=== PATIENT | male | born 1940 | race Asian ===

== ENCOUNTER 2017-03-28 09:20 | Inpatient (IN) | payer OTHER ==
[2017-03-21 16:12] LABS: BASOPHILS % (AUTO) 0.7 % (0.0-2.0); EOSINOPHILS # (AUTO) 0.5 K/uL (0.0-0.4); EOSINOPHILS % (AUTO) 8.2 % (0.0-4.0); HEMATOCRIT 38.9 % (36-54); HEMOGLOBIN 12.8 g/dL (14.0-18.0); LYMPHOCYTES # (AUTO) 1.6 K/uL (1.0-5.5); LYMPHOCYTES % (AUTO) 24.2 % (20.5-51.5); MEAN CORPUSCULAR HEMOGLOBIN 31 pg (27-31); MEAN CORPUSCULAR HGB CONC 33 % (32-36); MEAN CORPUSCULAR VOLUME 94 fL (79.0-98.0); MONOCYTES # (AUTO) 0.6 K/uL (0.0-1.0); MONOCYTES % (AUTO) 8.7 % (1.7-9.3); NEUTROPHILS # (AUTO) 3.9 K/uL (1.8-7.7); NEUTROPHILS % (AUTO) 58.2 % (40.0-70.0); PLATELET COUNT (AUTO) 163 K/uL (130-430); RED BLOOD CELL COUNT(AUTO) 4.15 MIL/uL (4.2-6.2); RED CELL DISTRIBUTION WIDTH 11.5 % (9.0-15.0); WHITE BLOOD COUNT (AUTO) 6.6 K/uL (4.8-10.8)
[2017-03-21 16:18] LABS: ANION GAP 7 (5-15); CALCIUM 9.2 mg/dL (8.4-11.0); CHLORIDE 109 mmol/L (98-107); CREATININE 1.15 mg/dL (0.55-1.30); GLUCOSE 126 mg/dL (70-99); POTASSIUM 4.2 mmol/L (3.5-5.1); SODIUM SERUM 141 mmol/L (136-145); UREA NITROGEN, BLOOD 20 mg/dL (8-21)
[2017-03-21 16:33] LABS: BILIRUBIN,URINE NEGATIVE (NEGATIVE); BLOOD, URINE NEGATIVE (NEGATIVE); CLARITY/URINE CLEAR (CLEAR); COLOR,URINE YELLOW (YELLOW); GLUCOSE,URINE NEGATIVE (NEGATIVE); KETONES,URINE NEGATIVE (NEGATIVE); LEUKOCYTE ESTERASE ,URINE NEGATIVE (NEGATIVE); NITRITE, URINE NEGATIVE (NEGATIVE); PH,URINE 5.5 (5.0-8.0); PROTEIN URINE NEGATIVE (NEGATIVE); UROBILINOGEN,URINE 0.2 (0.2-1.0)
[~2017-03-28] VITALS: Ht 162.6 cm; Wt 85.3 kg
[~2017-03-28 09:20] MED LIST: ASA81 PO; ASPI-1063 PO; DOCU-144 PO; ESOM40CA PO; LEVO125T8 PO; LOSA100T11 PO; METO25TA3 PO; NAPR-688 PO; OMEP40CA33 PO; SIMV20TA2 PO
[2017-03-28] MEDS ORDERED: CEFAZOLIN 2 GM IVPB PREMIX 50 ML IV ONE (10:00)
[2017-03-28] MEDS ORDERED: LR 1,000 ML IV ONE ×2 (10:00→13:23)
[2017-03-28] MEDS ORDERED: VANCOMYCIN HCL 1 GM/NS PREMIX 250 ML IV ONE (10:00)
[2017-03-28] MEDS ORDERED: TRANEXAMIC ACID 1,000 MG/10 ML VIAL IV ONE (10:15)
[2017-03-28] MEDS ORDERED: POLYMYXIN 500,000/BACIT.10,000 UNITS in NS IRR 1 L IR ONE (10:21)
[2017-03-28] MEDS ORDERED: DEXAMETHASONE SOD PHOSPHATE 4 MG/ML VIAL IVP ONE (11:26)
[2017-03-28] MEDS ORDERED: METOCLOPRAMIDE HCL 10 MG/2 ML VIAL IVP ONE (11:26)
[2017-03-28] MEDS ORDERED: KETOROLAC TROMETHAMINE 30 MG VIAL IVP ONE (11:26)
[2017-03-28] MEDS ORDERED: PROPOFOL 200MG/ 20ML VIAL (DIPRIVAN) IV ONE (11:26)
[2017-03-28] MEDS ORDERED: LR 1,000 ML IV.SOLN IV ONE (11:26)
[2017-03-28] MEDS ORDERED: SEVOFLURANE 15 MIN GAS INH ONE (11:26)
[2017-03-28] MEDS ORDERED: MORPHINE SULFATE 10MG/10ML PF AMP EP ONE (11:26)
[2017-03-28] MEDS ORDERED: ROPIVACAINE 0.2% (NAROPIN) PF SOLUTION 100 ML BOTTLE EP ONE (11:26)
[2017-03-28] MEDS ORDERED: ROPIVACAINE HCL/PF 5 MG/ML 0.5% 30 ML VIAL INJ ONE (11:26)
[2017-03-28] MEDS ORDERED: VANCOMYCIN HCL 1000 MG/VIAL IV ONE (11:26)
[2017-03-28] MEDS ORDERED: MIDAZOLAM HCL 5 MG/5 ML VIAL IVP ONE (11:26)
[2017-03-28] MEDS ORDERED: fentaNYL CITRATE 250 MCG/5 ML AMP IV ONE (11:26)
[2017-03-28] MEDS ORDERED: NORMAL SALINE 10 ML VIAL IVP ONE (11:26)
[2017-03-28] MEDS ORDERED: NS 100 ML BAG IV ONE (11:26)
[2017-03-28] MEDS ORDERED: MORPHINE SULFATE 10 MG/ML VIAL IVP ONE (11:26)
[2017-03-28] MEDS ORDERED: DIPHENHYDRAMINE INJ 50 MG/ML VIAL IVP PRN (13:30)
[2017-03-28] MEDS ORDERED: NALBUPHINE HCL 10 MG/ML AMP IVP PRN (13:30)
[2017-03-28] MEDS ORDERED: ONDANSETRON HCL 4 MG/2 ML VIAL IVP PRN ×3 (13:30→14:45)
[2017-03-28] MEDS ORDERED: ePHEDrine sulfate 50 MG/ML VIAL IVP PRN (13:30)
[2017-03-28] MEDS ORDERED: fentaNYL CITRATE/PF 100 MCG/2 ML AMP IVP PRN (13:30)
[2017-03-28] MEDS ORDERED: NALOXONE HCL 0.4 MG/ML AMP (NARCAN) IVP PRN (13:30)
[2017-03-28] MEDS ORDERED: DIPHENHYDRAMINE HCL 25 MG CAPSULE PO PRN (14:45)
[2017-03-28] MEDS ORDERED: fentaNYL CITRATE/PF 100 MCG/2 ML AMP ONE (15:34)
[2017-03-28 16:20] VITALS: BP_SYST 127
[2017-03-28] MEDS: D5/0.45 NS 1,000 ML IV SCH (16:31)
[2017-03-28] MEDS: KETOROLAC TROMETHAMINE 15 MG VIAL IVP SCH (17:27)
[2017-03-28] MEDS ORDERED: TRANEXAMIC ACID 1,000 MG in NS 50 ML IV ONE (18:00)
[2017-03-28] MEDS: SENNOSIDES 8.6 MG TABLET PO SCH (20:36)
[2017-03-28] MEDS: SIMVASTATIN 20 MG TABLET PO SCH (20:36)
[2017-03-28 20:38] VITALS: BP_SYST 111
[2017-03-28 23:54] VITALS: BP_SYST 109
[2017-03-29] VITALS (7 sets, daily range): BP systolic 102–120
[2017-03-29] MEDS: KETOROLAC TROMETHAMINE 15 MG VIAL IVP SCH ×2 (00:46→06:01)
[2017-03-29] MEDS: D5/0.45 NS 1,000 ML IV SCH ×4 (00:46→22:41)
[2017-03-29] MEDS: LEVOTHYROXINE SODIUM 0.125 MG TABLET PO SCH (06:01)
[2017-03-29 07:12] LABS: ANION GAP 7 (5-15); CALCIUM 8.3 mg/dL (8.4-11.0); CHLORIDE 106 mmol/L (98-107); CREATININE 1.33 mg/dL (0.55-1.30); GLUCOSE 142 mg/dL (70-99); POTASSIUM 4.6 mmol/L (3.5-5.1); SODIUM SERUM 138 mmol/L (136-145); UREA NITROGEN, BLOOD 20 mg/dL (8-21)
[2017-03-29 07:23] LABS: BASOPHILS % (AUTO) 0.4 % (0.0-2.0); HEMATOCRIT 31.6 % (36-54); HEMOGLOBIN 10.6 g/dL (14.0-18.0); LYMPHOCYTES # (AUTO) 1.3 K/uL (1.0-5.5); LYMPHOCYTES % (AUTO) 11.6 % (20.5-51.5); MEAN CORPUSCULAR HEMOGLOBIN 31 pg (27-31); MEAN CORPUSCULAR HGB CONC 34 % (32-36); MEAN CORPUSCULAR VOLUME 93 fL (79.0-98.0); MONOCYTES # (AUTO) 0.9 K/uL (0.0-1.0); MONOCYTES % (AUTO) 8.6 % (1.7-9.3); NEUTROPHILS # (AUTO) 8.7 K/uL (1.8-7.7); NEUTROPHILS % (AUTO) 79.4 % (40.0-70.0); PLATELET COUNT (AUTO) 133 K/uL (130-430); RED BLOOD CELL COUNT(AUTO) 3.41 MIL/uL (4.2-6.2); RED CELL DISTRIBUTION WIDTH 12.1 % (9.0-15.0); WHITE BLOOD COUNT (AUTO) 10.9 K/uL (4.8-10.8)
[2017-03-29] MEDS: LOSARTAN POTASSIUM 50 MG TABLET (COZAAR) PO SCH (08:43)
[2017-03-29] MEDS: METOPROLOL SUCCINATE 25 MG TAB.SR.24H (TOPROL XL) PO SCH (08:43)
[2017-03-29] MEDS: OMEPRAZOLE 20 MG CAPSULE.DR (PriLOSEC) PO SCH (08:56)
[2017-03-29] MEDS: MULTIVITAMINS TAB 1 TABLET PO SCH (08:57)
[2017-03-29] MEDS: ASCORBIC ACID 500 MG TABLET PO SCH ×2 (08:57→21:57)
[2017-03-29] MEDS: HYDROcodone/ACETAMIN 7.5-325 MG TAB PO PRN ×2 (08:59→14:32)
[2017-03-29] MEDS: RIVAROXABAN 10 MG TABLET PO SCH (10:40)
[2017-03-29] MEDS: SENNOSIDES 8.6 MG TABLET PO SCH (21:00)
[2017-03-29] MEDS: SIMVASTATIN 20 MG TABLET PO SCH (21:57)
[2017-03-30] MEDS: HYDROcodone/ACETAMIN 7.5-325 MG TAB PO PRN ×5 (00:04→18:09)
[2017-03-30 00:40] VITALS: BP_SYST 134
[2017-03-30 04:52] VITALS: BP_SYST 122
[2017-03-30] MEDS: LEVOTHYROXINE SODIUM 0.125 MG TABLET PO SCH (06:21)
[2017-03-30 07:10] LABS: BASOPHILS % (AUTO) 0.3 % (0.0-2.0); EOSINOPHILS # (AUTO) 0.2 K/uL (0.0-0.4); EOSINOPHILS % (AUTO) 2.4 % (0.0-4.0); HEMATOCRIT 30.1 % (36-54); LYMPHOCYTES # (AUTO) 1.5 K/uL (1.0-5.5); MEAN CORPUSCULAR HEMOGLOBIN 31 pg (27-31); MEAN CORPUSCULAR HGB CONC 33 % (32-36); MEAN CORPUSCULAR VOLUME 93 fL (79.0-98.0); MONOCYTES % (AUTO) 10.3 % (1.7-9.3); NEUTROPHILS # (AUTO) 6.9 K/uL (1.8-7.7); PLATELET COUNT (AUTO) 147 K/uL (130-430); RED BLOOD CELL COUNT(AUTO) 3.24 MIL/uL (4.2-6.2); RED CELL DISTRIBUTION WIDTH 12.3 % (9.0-15.0); WHITE BLOOD COUNT (AUTO) 9.6 K/uL (4.8-10.8)
[2017-03-30 07:17] LABS: ANION GAP 7 (5-15); CALCIUM 8.9 mg/dL (8.4-11.0); CHLORIDE 105 mmol/L (98-107); CREATININE 1.07 mg/dL (0.55-1.30); GLUCOSE 103 mg/dL (70-99); POTASSIUM 4.1 mmol/L (3.5-5.1); SODIUM SERUM 138 mmol/L (136-145); UREA NITROGEN, BLOOD 16 mg/dL (8-21)
[2017-03-30 07:30] VITALS: BP_SYST 131
[2017-03-30] MEDS: LOSARTAN POTASSIUM 50 MG TABLET (COZAAR) PO SCH (08:56)
[2017-03-30] MEDS: METOPROLOL SUCCINATE 25 MG TAB.SR.24H (TOPROL XL) PO SCH (08:57)
[2017-03-30] MEDS: ASCORBIC ACID 500 MG TABLET PO SCH ×2 (08:58→20:46)
[2017-03-30] MEDS: MULTIVITAMINS TAB 1 TABLET PO SCH (08:58)
[2017-03-30] MEDS: OMEPRAZOLE 20 MG CAPSULE.DR (PriLOSEC) PO SCH (08:59)
[2017-03-30] MEDS: RIVAROXABAN 10 MG TABLET PO SCH (09:54)
[2017-03-30] MEDS: D5/0.45 NS 1,000 ML IV SCH ×3 (10:00→20:51)
[2017-03-30 12:30] VITALS: BP_SYST 132
[2017-03-30] MEDS: HYDROcodone/ACETAMIN 10-325 MG TAB PO PRN ×3 (12:41→22:28)
[2017-03-30 16:25] VITALS: BP_SYST 112
[2017-03-30 20:00] VITALS: BP_SYST 115
[2017-03-30] MEDS: SIMVASTATIN 20 MG TABLET PO SCH (20:46)
[2017-03-30] MEDS: SENNOSIDES 8.6 MG TABLET PO SCH (20:47)
[2017-03-31 00:58] VITALS: BP_SYST 120
[2017-03-31] MEDS: HYDROcodone/ACETAMIN 10-325 MG TAB PO PRN ×3 (02:59→17:44)
[2017-03-31 04:00] VITALS: BP_SYST 126
[2017-03-31] MEDS: LEVOTHYROXINE SODIUM 0.125 MG TABLET PO SCH (06:06)
[2017-03-31] MEDS: D5/0.45 NS 1,000 ML IV SCH ×2 (06:07→14:41)
[2017-03-31] MEDS: HYDROcodone/ACETAMIN 7.5-325 MG TAB PO PRN ×2 (06:07→12:30)
[2017-03-31 06:17] LABS: BASOPHILS # (AUTO) 0.1 K/uL (0.0-0.2); BASOPHILS % (AUTO) 1.1 % (0.0-2.0); EOSINOPHILS # (AUTO) 0.5 K/uL (0.0-0.4); EOSINOPHILS % (AUTO) 5.1 % (0.0-4.0); HEMATOCRIT 30.4 % (36-54); LYMPHOCYTES # (AUTO) 1.7 K/uL (1.0-5.5); MEAN CORPUSCULAR HEMOGLOBIN 31 pg (27-31); MEAN CORPUSCULAR HGB CONC 33 % (32-36); MEAN CORPUSCULAR VOLUME 93 fL (79.0-98.0); MONOCYTES % (AUTO) 11.1 % (1.7-9.3); NEUTROPHILS # (AUTO) 5.8 K/uL (1.8-7.7); NEUTROPHILS % (AUTO) 63.7 % (40.0-70.0); PLATELET COUNT (AUTO) 140 K/uL (130-430); RED BLOOD CELL COUNT(AUTO) 3.26 MIL/uL (4.2-6.2); RED CELL DISTRIBUTION WIDTH 12.2 % (9.0-15.0); WHITE BLOOD COUNT (AUTO) 9.1 K/uL (4.8-10.8)
[2017-03-31 06:37] LABS: ANION GAP 5 (5-15); CHLORIDE 105 mmol/L (98-107); GLUCOSE 98 mg/dL (70-99); POTASSIUM 4.1 mmol/L (3.5-5.1); SODIUM SERUM 138 mmol/L (136-145); UREA NITROGEN, BLOOD 16 mg/dL (8-21)
[2017-03-31 08:54] VITALS: BP_SYST 160
[2017-03-31] MEDS: LOSARTAN POTASSIUM 50 MG TABLET (COZAAR) PO SCH (09:26)
[2017-03-31] MEDS: MULTIVITAMINS TAB 1 TABLET PO SCH (09:27)
[2017-03-31] MEDS: ASCORBIC ACID 500 MG TABLET PO SCH (09:27)
[2017-03-31] MEDS: METOPROLOL SUCCINATE 25 MG TAB.SR.24H (TOPROL XL) PO SCH (09:27)
[2017-03-31] MEDS: RIVAROXABAN 10 MG TABLET PO SCH (09:28)
[2017-03-31] MEDS: OMEPRAZOLE 20 MG CAPSULE.DR (PriLOSEC) PO SCH (09:28)
[2017-03-31 12:49] VITALS: BP_SYST 119
[2017-03-31 14:40] VITALS: BP_SYST 119
[2017-03-31] MEDS ORDERED: RIVA10TA PO (16:28)
[2017-03-31] MEDS ORDERED: HYDR-4100 PO (16:28)
[2017-03-31 16:31] VITALS: BP_SYST 137
== END 2017-03-31 18:30 | disposition home health service (06) | DRG 470 ==
LOC: SMU 09:20
PROVIDERS: ADMIT Orthopaedic Surgery; ATTEND Orthopaedic Surgery
PROC: 0SRC0J9 Replacement of Right Knee Joint with Synthetic Substitute, Cemented, Open Approach (ICD-10-PCS; principal; 2017-03-28 12:00)
DX: M17.11 Unilateral primary osteoarthritis, right knee (principal); E03.9 Hypothyroidism, unspecified; I10 Essential (primary) hypertension; I25.10 Atherosclerotic heart disease of native coronary artery without angina pectoris; J45.909 Unspecified asthma, uncomplicated; Z96.652 Presence of left artificial knee joint; Z87.891 Personal history of nicotine dependence; Z95.5 Presence of coronary angioplasty implant and graft; Z79.82 Long term (current) use of aspirin; Z79.899 Other long term (current) drug therapy
CPT/HCPCS: 36415; 71020-TC; 73560-TC; 80048; 81003; 85025; 86886; 86900; 86901; 87081; 88305; 88311; 94010; 94760; 97110-GP; 97116-GP; 97530-GP; C1713; C1776; J0690; J1100; J1885; J2250; J2270; J2274; J2704; J2765; J2795; J3010; J3370; J3490; J7120

== ENCOUNTER 2017-04-10 11:54 | Outpatient (CLI) | payer OTHER ==
[~2017-04-10 11:54] MED LIST changes: -ASA81 PO; -ASPI-1063 PO; -DOCU-144 PO; -ESOM40CA PO; +HYDR-4100 PO; -NAPR-688 PO; -OMEP40CA33 PO; +RIVA10TA PO
== END 2017-04-10 20:34 | disposition home or self-care (01) ==
LOC: SUS 11:54
PROVIDERS: ATTEND Orthopaedic Surgery
DX: R60.0 Localized edema (principal)
CPT/HCPCS: 93970